=== PATIENT | female | born 1955 | race Caucasian/White ===

== ENCOUNTER 2018-02-18 00:28 | Emergency (ER) | payer OTHER ==
[~2018-02-18] VITALS: Ht 162.6 cm; Wt 53.3 kg
[2018-02-18 00:32] VITALS: BP 169/60
== END 2018-02-18 01:16 | disposition home or self-care (01) ==
LOC: ED 01:10
DX: H10.022 Other mucopurulent conjunctivitis, left eye (principal)
CPT/HCPCS: 99283